=== PATIENT | male | born 1955 | race Hispanic/Latino ===

== ENCOUNTER 2020-02-05 19:02 | Emergency (ER) | payer OTHER ==
[~2020-02-05] VITALS: Ht 165.1 cm; Wt 90.7 kg
[2020-02-05] MEDS ORDERED: LIDOCAINE HCL 1% LOCAL INJ 20 ML VIAL INJ ONE (19:15)
[2020-02-05] MEDS ORDERED: TETANUS/DIPHTHERIA TOX ADULT 0.5 ML SYR IM ONE (19:15)
[2020-02-05] MEDS ORDERED: BACITRACIN ZINC 0.9GM TP ONE (20:00)
== END 2020-02-05 20:15 | disposition home or self-care (01) ==
LOC: ER 19:52
DX: S61.412A Laceration without foreign body of left hand, initial encounter (principal); W26.8XXA Contact with other sharp object(s), not elsewhere classified, initial encounter; Y92.000 Kitchen of unspecified non-institutional (private) residence as the place of occurrence of the external cause; E78.5 Hyperlipidemia, unspecified; Z86.73 Personal history of transient ischemic attack (TIA), and cerebral infarction without residual deficits
CPT/HCPCS: 12001; 73130; 90471; 90714; 99283; J2001